=== PATIENT | female | born 1955 | race Caucasian/White ===

== ENCOUNTER 2024-03-10 12:50 | Inpatient (IN) | payer MEDICARE, OTHER, SELFPAY ==
[2024-03-10] VITALS (50 sets, daily range): BP systolic 77–129; BP diastolic 28–108; PULSE 2–88; BMI 24.8
--- NOTE | 2024-03-10 11:20 | ED.GENMED ---
History of Present Illness
General
Chief Complaint: Chest Pain
Source: patient and records (requested)
Exam Limitations: none
Time Seen by Provider: 03/10/24 11:07
Nursing documentation reviewed up to this point in time: agreed with
History of Present Illness
History of Present Illness:
68-year-old female presents with chest pain onset at 830 middle of her chest into her back and shoulders for 5 out of 10 started with light activity at her job at a local [employer] she lives in the [facility] she had a cath a year ago she sees
Mamta had no stents placed, procedure was done at [facility], she has hyperlipidemia, does not drink or smoke
Past History
Past History
ED Past Medical History: Hypercholesterolemia; Negative CAD or NIDDM
Social History
Tobacco: Non-smoker
Alcohol: None
Drug: None
Personal:
Living: with family
Employment: Employed
Phy Exam
Physical Exam
Physical Exam:
Physical Exam
General: 68 female looks uncomfortable
Neck: No jaundice
Heart: Tachycardic
Lungs: no acute respiratory distress. clear bilaterally
Abdomen: Not tender
Neuro: alert and oriented. no focal neurological deficits
Skin: no rash
Psychiatric: well kept. interactive and cooperative
Extremities: no edema. no calf tenderness.
Scores
Heart Score for Chest Pain Patients
STEMI patient?: No
History: Highly Suspicious
ECG: Significant ST-Depression
Age: >/= 65 years
Risk Factors: 1 or 2 Risk Factors
Troponin: >1 - <3 x Normal Limit
Heart Score for Chest Pain Patients: 8
Heart Score Risk: 72.7 % MACE over next 6 weeks
Course
Orders/Labs/Results
Orders:
Orders
03/10/24 10:59
Electrocardiogram (*1) Urgent
Reason for Study: Chest Pain
EKG- Treatment ONCE
03/10/24 11:11
Electrocardiogram (*1) Stat
Reason for Study: Other
Other Reason for Exam: chest pain
Cardiac Monitoring- Treatment ONCE
EKG- Treatment ONCE
Aspirin 325 mg PO NOW STA
CR Chest Portable - 1 View Urgent
Comment:
Reason For Exam: cp
Reason Study Needs to be Portable: Unable to Transport
03/10/24 11:16
Complete Blood Count/With Diff Urgent
Comprehensive Metabolic Panel Urgent
Lipase Urgent
Magnesium Urgent
TSH Urgent
Troponin I Urgent
03/10/24 11:19
Metoprolol [Lopressor] 2.5 mg IV NOW STA
03/10/24 11:48
Nitroglycerin Sublingual [Nitrostat (Sublingual)] 0.4 mg .ROUTE .STK-MED ONE
03/10/24 11:56
Heparin 3,700 units IV NOW STA
Heparin 4,000 units IV NOW STA
Heparin 5,000 units .ROUTE .STK-MED ONE
Abnormal Lab Results
03/10/24
11:16
BUN 18 H mg/dl
(7-17)
Glucose 112 H mg/dl
(70-99)
Troponin I 0.152 H* ng/ml
03/10/24 11:16
03/10/24 11:16
Vital Signs
Initial and Last Documented VS:
Initial Vital Signs
Pulse Resp BP Pulse Ox
140 18 129/78 98
03/10/24 11:08 03/10/24 11:08 03/10/24 11:08 03/10/24 11:08
Last Documented Vital Signs
Temp Pulse Resp BP Pulse Ox
97.6 F 93 23 97/66 92
03/10/24 11:11 03/10/24 11:46 03/10/24 11:46 03/10/24 11:46 03/10/24 11:45
MDM/Problems Addressed
Differential Diagnosis Includes:
ACS PE pericarditis less likely dissection
MDM/Problems Addressed:
Chest pain
Chronic conditions affecting care:
Hyperlipidemia
*Radiology
Radiology exam reviewed: preliminary read by ED provider
*Pulse Oximetry
Patient hypoxic: no
*EKG
Interpreted by ED Provider?: Yes
Interpretation: abnormal
Comparison EKG: no comparison EKG present
Heart Rate: 118
Rate: tachycardiac
Rhythm: sinus
Ischemia: ST depression
*Exhibition Designer Interpretation
Rate: normal
Interpretation: normal
Heart Rate: 122
Rhythm: sinus
*Critical Care Note
Total Time (30-74mins, 75-104mins- exclusive of procedures): 32
Update Note
Update Note:
Update patient with symptoms concerning for ACS plaque rupture, right sided posterior EKGs reviewed with cardiology looks that she has some dynamic changes, troponins noted will start on heparin will go for cardiac cath
ED Attending Note
-
Portions of this chart may have been created with voice recognition software.� Occasional wrong word or��sound alike� substitutions may have occurred due to the inherent limitations of voice recognition software.
Discharge Plan
Departure
Patient Disposition: Admit
Date of Disposition: 03/10/24
Time of Disposition: 11:58
Admit to: recyclable materials collector
Admit to doctor: cardiology
Presentation/result/management discussed w/ accepting MD/DO: cbc
Patient with high blood pressure during this ER visit?: No
Covid-19: Not Applicable
Discharge Problem:
ACS (acute coronary syndrome)
Interventions
Interventions:
*Risk Screen - Suicide Last Done: 03/10/24 11:11
*General Assessment Last Done: 03/10/24 11:11
*Neglect/Abuse Screening Last Done: 03/10/24 11:11
*ED COVID-19 Vaccine History Last Done: 03/10/24 11:11
ED- Cardiac Assessment Last Done: 03/10/24 11:40
Discharge Date and Time
Print Language: YI
[2024-03-10] MEDS: ASPIRIN 325 MG PO (11:26)
[2024-03-10] MEDS: LOPRESSOR 2.5 MG IV (11:26)
[2024-03-10 11:29] LABS: % Basophils 0.9 % (0-2); % Eosinophils 0.8 % (0-6); % Immature Granulocytes 0.3 % (0-0.5); % Lymphocytes 36.5 % (20.5-51.1); % Monocytes 7.2 % (1.7-9.3); % Neutrophils 54.3 % (42.2-75.2); Absolute Basophils 0.1 10^3/uL (0-0.2); Absolute Eosinophils 0.1 10^3/uL (0-0.7); Absolute Lymphocytes 2.9 10^3/uL (1.2-3.4); Absolute Monocytes 0.6 10^3/uL (0.1-0.6); Absolute Neutrophils 4.3 10^3/uL (1.4-6.5); Hematocrit 43.7 % (37.0-47.0); Hemoglobin 14.8 g/dL (12.0-16.0); Mean Corp Hgb Conc. 33.9 g/dL (33.0-37.0); Mean Corpuscular Hgb 30.1 pg (27.0-31.0); Mean Corpuscular Volume 88.8 fL (81.0-99.0); Mean Platelet Volume 9.8 fL (7.4-10.4); Nucleated Red Blood Cells % 0 %; Platelet Count 227 10^3/uL (130-400); Red Blood Cell Count 4.92 10^6/uL (4.20-5.40); Red Cell Dist. Width 13.3 % (11.5-14.5); White Blood Cell Count 7.8 10^3/uL (4.8-10.8)
[2024-03-10 11:39] LABS: ALT (SGPT) 23 U/L (0-35); AST (SGOT) 34 U/L (14-36); Albumin 4.8 g/dl (3.5-5.0); Alkaline Phosphatase 55 U/L (38-126); Blood Urea Nitrogen 18 mg/dl (7-17); Calcium 9.5 mg/dl (8.4-10.2); Carbon Dioxide 27 mmol/L (22-30); Chloride 99 mmol/L (98-107); Estimated Creatinine Clearance 55 ml/min; Glucose 112 mg/dl (70-99); Lipase 103 U/L (23-300); Magnesium 2.3 mg/dl (1.6-2.3); Potassium 4.1 mmol/L (3.5-5.1); Sodium 135 mmol/L (135-145); Total Bilirubin 0.5 mg/dl (0.2-1.3); Total Protein 7.6 g/dl (6.3-8.2); eGFR > 60.00
[2024-03-10 11:54] LABS: Troponin I 0.152 ng/ml
[2024-03-10] MEDS: HEPARIN 4000 UNITS IV (11:58)
--- NOTE | 2024-03-10 12:03 | HPS.HSE ---
Addendum entered and electronically signed by Kathrin Briones MD 03/10/24 12:11:
Patient on abx for eye 'infection' will continue
Original Note:
Family Physician
-
Family Physician:
Chief Complaint
-
chest pain
History of Present Illness
68-year-old female with a past medical history of hyperlipidemia presented for evaluation for sudden onset chest pain this morning while driving to work. She describes the chest pain as a pressure. She had some lightheadedness with it and felt not
right. When she got to work she asked her coworker to drive her here. She had the pain for several hours. Upon arrival, she began to feel better. Interestingly when she arrived with chest pain, she had diffuse anterolateral ST depressions and ST
elevation in aVR. Now she is past chest pain-free and we repeated the EKG and those ST changes have resolved. She also reports a catheterization last year after an abnormal stress test that she reports was 'normal'. She is compliant with
atorvastatin but decrease her dose from 40 mg to 20 mg. She has no other significant medical problems.
Medical History
Past Medical History
Past Medical History: Reports Hypercholesterolemia
Past Surgical History: Reports None
Social History
Tobacco: Non-smoker
Alcohol: None
Living: With Family
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
Family History
Family History: Early CAD (None)
Allergies / Home Medications
Allergies reflects when Allergies were last updated in [facility].
Home Medications with original date entered in [facility]
Allergy/Medication List:
No known drug allergies
Review of Systems
-
A 12 point ROS was completed and negative except as noted: Yes
Physical Exam
Vital Signs
Vital Signs
Temp Pulse Resp BP Pulse Ox
97.6 F 93 23 97/66 92
03/10/24 11:11 03/10/24 11:46 03/10/24 11:46 03/10/24 11:46 03/10/24 11:45
Physical Exam
General: Well Developed, Well Nourished and No Apparent Distress
HEENT: NormoCephalic
Respiratory: Clear; No Wheezes, Rales, Rhonchi or Crackles
Cardiac: S1/S2 and Regular Rhythm; No Murmur, Rub, Gallop or Peripheral Edema
GI: Soft, Non Tender and Non Distended
Genito-urinary: Deferred by me
Musculoskeletal: No Clubbing, No Cyanosis and No Edema
Neuro: AO x 3
Laboratory Results
-
03/10/24 11:16
03/10/24 11:16
Laboratory Results
Total Bilirubin 0.5 mg/dl (0.2-1.3) 03/10/24 11:16
AST 34 U/L (14-36) 03/10/24 11:16
ALT 23 U/L (0-35) 03/10/24 11:16
Alkaline Phosphatase 55 U/L (38-126) 03/10/24 11:16
Troponin I 0.152 ng/ml H* 03/10/24 11:16
Lipase 103 U/L (23-300) 03/10/24 11:16
troponin elevated at 0.15
Data Reviewed
-
CT Scan: Discussed with Physician (Discussed with Dr. Higgins and Dr. Ceballos, recommend urgent cardiac catheterization for concern of ACS.)
Medical Tests (Nuc Med, Echo, EKG etc): Image Personally Visualized and interpreted (Initial EKG sinus tachycardia 111 bpm with anteroseptal infarct, marked ST depressions V3-V6 to [address] elevation in aVR. PACs seen. At the bedside, she
was chest pain-free EKG ST depressions normalized.)
Impression/Plan
-
IMPRESSION:
ACS: Acute onset chest pain at rest with associated dynamic EKG changes and troponin of 0.15. Must rule out acute plaque rupture. She was given aspirin, will give heparin bolus.
-Main differential would be coronary vasospasm, given age and gender also could consider scad.
-Arrange for urgent transfer to the cardiac catheterization lab.
-Currently chest pain-free and blood pressure low normal, will hold off on nitrates unless needed.
-OMT will be added as indicated pending results of catheterization.
-Check lipid panel
-Check echo
-High-dose statin.
Hyperlipidemia: Continue statin.
This is a high risk situation, will admit to IVU after cardiac catheterization is performed.
--- NOTE | 2024-03-10 12:14 | ITS.CL.CATH ---
[facility] - Catheterization
Cardiac Catheterization
Procedure Report:
LEFT HEART CATHETERIZATION
Date of Procedure: March 10, 2024
Referring: Benita Briones
PROCEDURES:
1. Left heart catheterization, coronary angiogram.
2. Ultrasound guided access.
3. Single-plane ventriculography
INDICATION: Irma is a 68-year-old female with past medical history of hyperlipidemia who came in with acute onset chest pain found to have dynamic EKG changes and now is being urgently referred for left heart catheterization to rule out
obstructive CAD.
ACCESS: Right radial artery, 6 Greenlandic sheath, under ultrasound guidance
HEMODYNAMICS : (mmHg)
AO (s/d) : 86/62
LV (s/d) : 160/20
LVEDP : 38
CORONARY FINDINGS
DOMINANCE: Right
LEFT MAIN: The left main artery is a large-caliber vessel which gives rise to the left anterior descending artery and the left circumflex artery. There is minimal luminal irregularities.
LEFT ANTERIOR DESCENDING: The left anterior descending artery is a medium caliber vessel which gives rise to 2 major small caliber diagonal branches as it courses through the anterior interventricular groove towards the apex. There is minimal
luminal irregularities
CIRCUMFLEX: The left circumflex artery is a medium to large caliber vessel which we have's rise to 1 major obtuse marginal branch and a large posterolateral branch. There is minimal luminal irregularities.
RIGHT CORONARY ARTERY: The right coronary is a medium to large caliber, dominant vessel which gives rise to the right posterior descending artery and a small right posterolateral system. There is minimal luminal irregularities.
VENTRICULOGRAPHY: In a single-plane MCKENNA projection, there is severe hypokinesis in the mid to apical segments with hyperdynamic base, most consistent with stress-induced or Takotsubo cardiomyopathy. Estimated LVEF of about 30 to 35%
SEDATION: 30 minutes of procedural sedation was utilized. An independent medical equipment repairer was present to assist with and help manage the patient's level of consciousness and physiologic status.
RADIATION SUMMARY: Fluoro Time (min): 2.9, Dose (mGy): To 65.4, DAP (Gy.cm2) : 17.6
Closure Device: Vascular band over right radial artery, 10 cc of air
CONCLUSIONS
1. No obstructive coronary artery disease.
2. In a single-plane MCKENNA projection, there is severe hypokinesis in the mid to apical segments with hyperdynamic base, most consistent with stress-induced or Takotsubo cardiomyopathy. Estimated LVEF of about 30 to 35%.
3. Significantly elevated LVEDP at 38 mmHg.
RECOMMENDATIONS
1. Wean radial band per protocol.
2. Goal-directed medical therapy for underlying cardiomyopathy.
3. Full echocardiogram to assess biventricular function and rule out any significant valvular abnormalities.
4. Aggressive management of cardiovascular risk factors.
5. Eventual referral for outpatient cardiac
Copy to: Benita Briones
Sweta Ceballos MD, FACC, [facility]
[2024-03-10 12:25] LABS: TSH 2.07 uIU/ml (0.47-4.68)
[2024-03-10 13:00] LABS: ACT-LR - POC 260 Seconds (116-155)
--- NOTE | 2024-03-10 14:04 | CON.INTV ---
Consultation
Consultation Request
Date/Time Consultation Requested: 03/10/2024
Date/Time Consultation Performed: 03/10/2024
Requesting Provider: Dr. Briones
Performing Provider: Dr. Silas Augustine
Reason for Consultation: Acute hypoxemic respiratory failure/hypotension
Medical History
-
History of Present Illness:
68-year-old woman with history of hypercholesterolemia, came to the hospital for evaluation of chest pressure started this morning while she was driving to work. Patient did not feel well and complained of some lightheadedness. In the emergency
room she was found to have EKG abnormalities.Patient has a mild troponin increase. Chest x-ray demonstrated mild diffuse increased interstitial markings bilaterally. Patient underwent cardiac catheterization and discovered to have Takotsubo
cardiomyopathy. Had elevated filling pressures on catheterization per report, became hypotensive after diuresis. Became hypoxemia requiring noninvasive mechanical ventilation and is more hypertensive. Now sent to the critical care unit for
further care.
Past Medical History
Past Medical History: Other (See assessment and plan)
Social History
Tobacco: Non-smoker
Alcohol: None
Drug: None
Personal:
Living: With Family
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
Family History
Family History: Reviewed & Not Pertinent
Allergies / Home Medications
Allergies
Allergy/AdvReac Type Severity Reaction Status Date / Time
No Known Allergies Allergy Verified 03/10/24 11:21
Home Medications
�Medication �Instructions �Recorded �Confirmed �Last Taken �Type
atorvastatin 20 mg tablet (Lipitor) 20 mg PO HS 03/10/24 03/10/24 03/09/24 History
calcium carbonate 500 mg PO DAILY 03/10/24 03/10/24 03/09/24 History
cephalexin 500 mg capsule 500 mg PO Q8H 03/10/24 03/10/24 03/10/24 History
tobramycin 0.3 % eye drops 1 drp LEFT EYE QID 03/10/24 03/10/24 03/10/24 History
Review of Systems
-
History Source: Patient
All other systems: Negative unless noted
Vitals / Labs / Diagnostic Testing
Vital Signs
Temp Pulse Resp BP Pulse Ox
97.6 F 108 25 99/67 91
03/10/24 11:11 03/10/24 12:30 03/10/24 12:15 03/10/24 12:30 03/10/24 12:30
Lab Data
03/10/24 11:16
03/10/24 11:16
Diagnostic Testing:
Physical Exam
-
HEENT: Normocephalic
Cardiovascular: S1/S2
Respiratory: Rales
GI: Soft and Non Distended
Neurology: Awake, Oriented, AO x 3 and No Motor Deficits
Skin: Warm
General: Respiratory Distress (None on BiPAP) and Comfortable
Assessment
-
68-year-old woman who was admitted to the hospital on 03/10/2024 complaining of chest pressure, abnormal EKG in the emergency room. Taken to the [facility] that demonstrated no significant coronary artery disease. Ventriculogram consistent with
possible Takotsubo cardiomyopathy, patient developed hypotension of after receiving Lasix in the [facility]. Required Levophed. Transferred to the critical care unit for further care. Due to increased work of breathing also BiPAP was started.
Shock: Likely cardiogenic
Hypoxemic respiratory failureRecurrent BiPAP therapy for increased work of breathing
Chest x-ray with increased interstitial marking bilaterally.
Takotsubo cardiomyopathy based on left heart catheterization 03/10/2024
No significant coronary artery disease.
Conditions present prior admission:
Hyperlipidemia
Assessment and plan:
Patient is critically ill requiring noninvasive mechanical ventilation as well as vasopressors due to Takotsubo cardiomyopathy.
-
Shock: Continue Levophed for now, may need to consider inotropes-wait for cardiology input.
Levophed at 6 mics per minute-she seems improved. Comfortable at rest. Able to provide history.
Will target mean arterial blood pressure 65 mmHg
Cardiology following the patient: No significant coronary artery disease.
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 Perhaps reason for Takotsubo cardiomyopathy
Continue with goal-directed therapy for systolic cardiomyopathy.
Philip
Strict TAYLER's
Daily weight
Echocardiogram being performed-will follow.
-
Diuresis limited due to hypotension/shock.
Will follow renal function
-
Continue BiPAP, continue settings without change 12/13: Will adjust settings based on work of breathing. She appears comfortable pulse ox 98%.
Decrease FiO2 to 10 L/min via BiPAP.
She may take breaks from BiPAP later today.
Supplemental oxygen to maintain pulse ox above 90%
-
N.p.o. for now
Head of the bed elevation
-
DVT prophylaxis subcu
-
updated at the bedside by Dr. Augustine 03/10/2024.
-
Critical care statement: A total of 38 minutes of critical care time was provided for this patient today. This includes management of unstable vital signs, evaluation of the patient at bedside, reviewing the patient's pertinent medical records
including ventilator settings, arterial blood gases, radiographs, microbiology, laboratory evaluations and discussion with primary team, critical care nursing, and respiratory therapy.
--- NOTE | 2024-03-10 14:37 | W.PN.UPDATE ---
Update Note
Progress Note Update
Interventional cardiology update note
soon after scrubbing out of the case and calling the referring floor renovator, was called back into the lab given patient was hypotensive and hypoxic. She had gotten 20 mg of IV Lasix in the middle of the heart catheterization however had not had any
significant urine output yet. She was also diaphoretic and lightheaded. Systolic blood pressure was 76/42 with heart rates now in the 80s to 90s with sinus rhythm and pulse ox in the low to mid 80s. We urgently called for respiratory to bring
down a BiPAP given hypoxia was related to underlying heart failure from likely Takotsubo cardiomyopathy in the setting of a significantly elevated LVEDP. Patient received 3 pushes bedside of 100 mcg of Major-Synephrine for her hypotension and was
started on Levophed drip which was slowly uptitrated to 6 mcg/kg/min for blood pressure support. Level of care was escalated to request an ICU level of care given tenuous clinical status. With slow uptrend in her blood pressure patient became
symptomatically better with resolution of diaphoresis, chest pain and lightheadedness. Her pallor improved. She was placed on BiPAP 10/5 at 15 L of oxygen with improvement in her sats to 94%.
Referring floor renovator was updated regarding all of the above.
Sweta Ceballos MD, FAC, [facility]
Critical care time: 31mins
--- NOTE | 2024-03-10 15:03 | CARDSERVDEF ---
Echocardiogram with Definity completed after protocol screening completed. Allergies verified.
Patent IV site: __new site 20P L antecub/slightly upper arm area___
IV site flushed with 0.9% NaCl pre and post administration.
Diluted bolus method utilized to enhance visualization of ventricular gaitan.
Total volume given: __3.5__ mL
Patient tolerated all procedures well without complications.
[2024-03-10] MEDS: TOPROL XL 25 MG PO (15:07)
[2024-03-10] MEDS: KEFLEX PO (15:07)
[2024-03-10] MEDS: TOBREX 0.3% EYE DROPS 1 DROP LEFT EYE ×3 (17:17→21:44)
[2024-03-10 17:20] LABS: Phosphorus 4.3 mg/dl (2.5-4.5)
[2024-03-10 17:24] LABS: INR 1.02
--- NOTE | 2024-03-10 17:25 | PTCARENOTE ---
Pt received from laborer mine. AAOx3. Denying chest pain. Sinus tach with HR observed 100s - 120s. Received with Levophed gtt infusing with goal of SBP > 90; Levophed gtt weaned to 2 mcg/min. MAP remains > 65 and SBP > 90. SaO2 88-97% on BiPAP 10/5;
10L. Crackles auscultated throughout bilaterally. Harsh wet nonproductive cough. Orthopneic. 10L Midflow applied for pt to eat dinner with plan to return to BiPAP after completion. Pt assisted to bedside commode x1 without drop in SaO2 or blood
pressure. Voided 250ml yellow. (R) radial site band removed per protocol.
[2024-03-10] MEDS: KEFLEX 500 MG PO (17:52)
--- NOTE | 2024-03-10 19:40 | PTCARENOTE ---
Rec'd pt resting in bed, at bedside, updated on plan of care, denies pain, cooperative, Sinus Tach, levophed at 2 gino, to keep sbp > 90,R Rad site intact- ecchymotic at site, + pulses- weak ldistal pulses, skin dry, O2 via midflow 10 liters,
sat 95, lungs w/ crackles throughout, shallow, GONZALES, + bowel sounds, no bm, abd soft, HNV yet this shift; Nico Rubio NP notified of Sinus tach & crackles- LEVEL VIAL SETTER updated Dr Briones - to dc levophed & use Major prn, #16 fr thermister davison cath
inserted per order at 2100
--- NOTE | 2024-03-10 21:40 | PTCARENOTE ---
Major gtt started @ 20 gino to keep sbp > 90
[2024-03-10] MEDS: NEO-SYNEPHRINE 250 IV (21:41)
[2024-03-10] MEDS: MELATONIN 5 MG PO (21:44)
[2024-03-10] MEDS: LIPITOR 20 MG PO (21:44)
[2024-03-10 22:08] LABS: Blood Urea Nitrogen 17 mg/dl (7-17); Calcium 8.8 mg/dl (8.4-10.2); Carbon Dioxide 20 mmol/L (22-30); Chloride 102 mmol/L (98-107); Estimated Creatinine Clearance 63 ml/min; Glucose 122 mg/dl (70-99); Potassium 4.4 mmol/L (3.5-5.1); Sodium 132 mmol/L (135-145); eGFR > 60.00
[2024-03-10 22:09] LABS: APTT 29.7 Sec (23.4-35.0)
--- NOTE | 2024-03-10 22:30 | PTCARENOTE ---
bipap 10/5 w/ 10 liters o2 applied for the night
--- NOTE | 2024-03-10 23:00 | PTCARENOTE ---
sat 89%, BIPAP 10/5 w/ o2 incr to 15 liters, sat inc to 93
[2024-03-11] VITALS (62 sets, daily range): BP systolic 71–119; BP diastolic 48–81; PULSE 2–70; BMI 24.9
--- NOTE | 2024-03-11 00:08 | PTCARENOTE ---
sys reviewed, lungs w/ rales throughout, comf on bipap
[2024-03-11] MEDS: KEFLEX PO ×3 (00:10→08:30)
[2024-03-11 03:57] LABS: % Basophils 0.5 % (0-2); % Eosinophils 0.1 % (0-6); % Immature Granulocytes 0.4 % (0-0.5); % Monocytes 6.6 % (1.7-9.3); % Neutrophils 73.4 % (42.2-75.2); Absolute Basophils 0.1 10^3/uL (0-0.2); Absolute Immature Granulocytes 0.1 10^3/uL (0-0.05); Absolute Lymphocytes 2.7 10^3/uL (1.2-3.4); Absolute Neutrophils 10.6 10^3/uL (1.4-6.5); Hemoglobin 14.7 g/dL (12.0-16.0); Mean Corpuscular Hgb 30.1 pg (27.0-31.0); Mean Corpuscular Volume 85.9 fL (81.0-99.0); Nucleated Red Blood Cells % 0 %; Platelet Count 231 10^3/uL (130-400); Red Blood Cell Count 4.89 10^6/uL (4.20-5.40); Red Cell Dist. Width 13.3 % (11.5-14.5); White Blood Cell Count 14.4 10^3/uL (4.8-10.8)
--- NOTE | 2024-03-11 04:00 | PTCARENOTE ---
sys reviewed, lungs w/ crackles 1/2 up left & R base, sat 98
[2024-03-11 04:27] LABS: ALT (SGPT) 24 U/L (0-35); AST (SGOT) 61 U/L (14-36); Albumin 3.7 g/dl (3.5-5.0); Alkaline Phosphatase 51 U/L (38-126); Blood Urea Nitrogen 16 mg/dl (7-17); Calcium 8.6 mg/dl (8.4-10.2); Carbon Dioxide 24 mmol/L (22-30); Chloride 103 mmol/L (98-107); Estimated Creatinine Clearance 55 ml/min; Glucose 103 mg/dl (70-99); HDL Cholesterol 73 mg/dl; LDL Cholesterol, Calculated 59 mg/dl; Potassium 4.3 mmol/L (3.5-5.1); Sodium 134 mmol/L (135-145); Total Bilirubin 0.6 mg/dl (0.2-1.3); Total Cholesterol 153 mg/dl (50-199); Total Protein 6.2 g/dl (6.3-8.2); Triglyceride 105 mg/dl (10-149); Very Low Density Lipoprotein 21 mg/dl (0-30); eGFR > 60.00
--- NOTE | 2024-03-11 05:58 | PTCARENOTE ---
bipap off per pt request, 10 liters midflow applied
[2024-03-11] MEDS: TYLENOL 650 MG PO (06:04)
--- NOTE | 2024-03-11 06:07 | PTCARENOTE ---
tylenol 650 mg po given for headache
--- NOTE | 2024-03-11 08:00 | PTCARENOTE ---
Received pt @ change of shift. AAOx3, denies pain. SR on monitor. SpO2 97% on 10LMF, GONZALES. Auscultated scattered crackles throughout. +BS, abd soft/round/nt. Cont BM. Tolerating meals. Therm davison in place draining yellow urine. #20 R AC w
valery gtt infusing- see flow sheet. Call thomas in reach.
--- NOTE | 2024-03-11 08:07 | W.PN.CD ---
Addendum entered and electronically signed by Kathrin Briones MD 03/11/24 09:30:
Data:
TTE 03/10/24:
CONCLUSIONS
Moderately reduced left ventricular systolic function. Left ventricular
ejection fraction is 30-35% by visual estimate.
Hyperdynamic basal wall segments with mid to distal severe hypokinesis of all
gaitan suggestive of Takotsubo cardiomyopathy.
Intermittent complete obliteration of the LVOT, gradients not obtained due to
patient distress limiting the study.
Systolic anterior motion of the mitral valve leaflets with moderate to severe,
eccentric mitral regurgitation.
Mild pulmonary hypertension.
Cath: 03/10/24:
CONCLUSIONS
1. No obstructive coronary artery disease.
2. In a single-plane MCKENNA projection, there is severe hypokinesis in the mid to apical segments with hyperdynamic base, most consistent with stress-induced or Takotsubo cardiomyopathy. Estimated LVEF of about 30 to 35%.
3. Significantly elevated LVEDP at 38 mmHg.
No prior study available for comparison.
Original Note:
Today's Communication / Plan
-
Discussed with patient, ccn and Dr Tsai
Impression / Plan
-
68-year-old female with a past medical history of hyperlipidemia presented for evaluation for sudden onset chest pain while driving to work. Initial EKG changes were dynamic, she was sent for cardiac catheterization found to have Takotsubo
cardiomyopathy.
Cardiogenic shock: In the setting of Takotsubo cardiomyopathy with LV outflow tract obstruction:
-Successfully transitioned overnight to phenylephrine, will continue.
-Continue beta-cesar, will assess response this a.m. and up titrate dose.
-Patient slightly negative but UOP not robust, given hemodynamics will give a IV bolus in effort to help with LVOT obstruction.
-Explained the complexity of the situation to the patient and the need to optimize her hemodynamics. With this may need more respiratory support.
Acute hypoxic respiratory failure: 2/2 to CHF
- comfortable
-eventually will likely need diuresis but this will have to wait until HD's improve
-BIPAP supports available
-Appreciate nitrogen operator assistance
Takotsubo CMY
-causing significant LVOT obstruction
-BB to continue
-eventual GDMT as able
Mod-severe MR;
-Due to HOWARD in the setting of takotsubo CMY
-hopefully will improve as HD's improve
-reassess prior to discharge
HLD:
-LDL 153, will bump up statin prior to discharge
Eye infection'
-completed abs
Overall still remains a high risk situation
Subjective:
didn't sleep well, but breathing actually feeling a bit better
CCT 35 minutes
Physical Exam
Vital Signs/Labs
Vital Signs
Temp Pulse Resp BP Pulse Ox
100.3 F 83 16 93/67 94
03/11/24 07:00 03/11/24 06:15 03/11/24 06:15 03/11/24 06:11 03/11/24 06:15
03/10/24 03/11/24 03/12/24
06:59 06:59 06:59
Actual Weight 61.8 kg
03/11/24 03:39
03/11/24 03:39
PT 14.0 Sec (11.4-14.6) 03/10/24 16:55
INR 1.02 03/10/24 16:55
APTT 29.7 Sec (23.4-35.0) 03/10/24 21:39
Magnesium 2.3 mg/dl (1.6-2.3) 03/10/24 11:16
Triglycerides 105 mg/dl (10-149) 03/11/24 03:39
LDL Cholesterol, Calc 59 mg/dl 03/11/24 03:39
VLDL Cholesterol, Calc 21 mg/dl (0-30) 03/11/24 03:39
HDL Cholesterol 73 mg/dl 03/11/24 03:39
TSH 2.07 uIU/ml (0.47-4.68) 03/10/24 11:16
LAB Results
03/10/24 03/10/24 03/10/24
11:16 16:55 21:39
Troponin I 0.152 H* 1.670 H* D 2.360 H* D
03/11/24
03:39
Troponin I 4.460 H* D
Physical Exam
Constitutional: No acute distress
Cardiovascular: Rhythm & rate is regular, Pedal edema is absent (but feet cool), JVD pressure is normal, Systolic murmur absent and Diastolic murmur absent
Respiratory: Respiratory effort normal and Crackles Present (bibasilarly )
Neuro/Psych: AO x 3
Data Reviewed
-
Date of Service: March 11, 2024
Medical Decision Making: Review of Case with other Provider (Discussed with patient, ccn and Dr Tsai---need to approach differently than typical cardiogenic shock given LVOT obstruction)
EKG: Other (tele NSR and ST)
[2024-03-11] MEDS: TOPROL XL 25 MG PO ×2 (08:28→20:31)
[2024-03-11] MEDS: NSS 500 IV (08:28)
[2024-03-11] MEDS: TOBREX 0.3% EYE DROPS 1 DROP LEFT EYE ×4 (08:28→20:32)
[2024-03-11] MEDS: LOW STRENGTH ASPIRIN 81 MG PO (08:28)
--- NOTE | 2024-03-11 08:34 | W.PN.INTV ---
Today's Communication / Plan
Recommendations
Continue Major-Synephrine
Beta-blockers
Follow renal function
Cautious hydration today
BiPAP as needed for increased work of breathing but would use at bedtime.
Oxygen supplementation to maintain pulse ox above 90%-oxygen supplementation reduced to 6 L nasal cannula.
Continue critical care hemodynamic monitoring
Continue cardiology recommendations
Assessment
-
68-year-old woman who was admitted to the hospital on 03/10/2024 complaining of chest pressure, abnormal EKG in the emergency room. Taken to the [facility] that demonstrated no significant coronary artery disease. Ventriculogram consistent with
possible Takotsubo cardiomyopathy, patient developed hypotension of after receiving Lasix in the [facility]. Required Levophed. Transferred to the critical care unit for further care. Due to increased work of breathing also BiPAP was started.
Cardiogenic shock
Hypoxemic respiratory failureRecurrent BiPAP therapy for increased work of breathing
Chest x-ray with increased interstitial marking bilaterally.
Takotsubo cardiomyopathy based on left heart catheterization 03/10/2024
No significant coronary artery disease.
Conditions present prior admission:
Hyperlipidemia
Assessment and plan:
Patient is critically ill requiring noninvasive mechanical ventilation as well as vasopressors due to Takotsubo cardiomyopathy.
-
Shock:
Echocardiogram noted03/10/2024: Ejection fraction 30 to 35%. Hyperdynamic basal wall segment with mid to distal severe hypokinesis of all gaitan suggestive of Takotsubo cardiomyopathy. Intermittent complete obliteration of the LVOT, moderate to
severe MR. Mild pulmonary hypertension
Continue Levophed for now, may need to consider inotropes-wait for cardiology input.
Levophed at 6 mics per minute-she seems improved. Comfortable at rest. Able to provide history.
-
Catheterization 03/10/2024: No evidence for obstructive coronary artery disease. Severe hypokinesis of mid to apical segments ejection fraction 30 to 35%, consistent with Takotsubo cardiomyopathy. Increased LVEDP
-
Discussed with cardiology 03/11/2024: Avoid tachycardia-Levophed transition to Major-Synephrine.
Cautious hydration today
Unable to diurese at this point
Low-dose beta-blockers as able
Antiplatelets
Statins
Continue goal-directed therapy for cardiomyopathy.
-
Will follow renal function closely
Continue ICU hemodynamic monitoring, high risk intubation.
-
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 Perhaps reason for Takotsubo cardiomyopathy
-
Continue Philip
Strict TAYLER's
Daily weight-unable to diurese at this point due to borderline hemodynamics.
-
Continue BiPAP, continue settings without change 12/13: May continue at night and as needed. Patient snores and she was supposed to get a sleep study in the outpatient setting.
Pulse ox 100% on 10 L nasal cannula, decreased to 6 L on pulse ox remains at 95% with conversation.
Continue to decrease FiO2, maintain pulse ox above 90%
She may take breaks from BiPAP intermittently.
-
Advance diet
Head of the bed elevation
-
DVT prophylaxis subcu
-
updated at the bedside by Dr. Augustine 03/10/2024.
-
Critical care statement: A total of 31 minutes of critical care time was provided for this patient today. This includes management of unstable vital signs, evaluation of the patient at bedside, reviewing the patient's pertinent medical records
including ventilator settings, arterial blood gases, radiographs, microbiology, laboratory evaluations and discussion with primary team, critical care nursing, and respiratory therapy.
Subjective Dataa
Subjective Data
Date of Service:
Date of Service: March 11, 2024
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
Subjective:
Remained intermittently on BiPAP overnight
No significant phlegm production
Denies shortness of breath at rest
Denies chest pain or lightheadedness
Review of Systems
Cardiopulmonary: Dyspnea (none at rest)
GI: Abdominal Pain (n) and Nausea (n)
Neuro: Headache (n)
Objective Data
Data Reviewed
Vital Signs / I&O / Oxygen:
Vital Signs
Temp Pulse Resp BP Pulse Ox
100.3 F 83 16 110/65 94
03/11/24 07:00 03/11/24 08:28 03/11/24 06:15 03/11/24 08:28 03/11/24 06:15
Intake and Output
03/10/24 03/11/24 03/12/24
06:59 06:59 06:59
Intake Total 664.5 / 664.5
Output Total 970 / 970
Balance -305.5 / -305.5
SaO2 94
Nasal Cannula flow liters per 10
minute
Physical Exam
General: Comfortable
HEENT: Normocephalic
Cardiovascular: S1-S2
Respiratory: Crackles and Non-Labored Respirations (at rest)
GI: Soft and Non Distended
Neurology: Awake and AO x 3
Skin: Warm
Labs/Micro/Reports
Lab Data
03/11/24 03:39
03/11/24 03:39
Laboratory Results
03/10/24 03/10/24
16:55 21:39
PT 14.0
INR 1.02
APTT 29.7
[2024-03-11] MEDS: NEO-SYNEPHRINE 250 IV (09:48)
--- NOTE | 2024-03-11 15:13 | PTCARENOTE ---
O2 weaned today down to 6LNC, pt. tolerating wean; SpO2 97%. No s/s of resp distress. SBP maintained goal x4H, valery gtt tapered to off. Pt. stand by assisted OOB into BR for complete self hygiene care. Pt. assisted into chair post BR. Tolerated
chair position approx 30min. Pt. reported slight lightheadedness and BP 80/53. Pt. assisted back into bed and valery gtt restarted- see flow sheet. @ bedside. Call thomas in reach.
[2024-03-11] MEDS: LIPITOR 20 MG PO (18:08)
--- NOTE | 2024-03-11 20:00 | PTCARENOTE ---
property assessment monitor, aaox3, denies pain, SR HR HR 60s. IV x 3 WNL- valery gtt infusing per work list. Sat 98% on 6LNC. Davison draining adequate amt UO. Mouth care, davison care. POC discussed,call thomas with pt.
[2024-03-11] MEDS: MELATONIN 5 MG PO (22:15)
[2024-03-12] VITALS (47 sets, daily range): BP systolic 87–136; BP diastolic 42–119; PULSE 2–67; BMI 25.1
--- NOTE | 2024-03-12 04:00 | PTCARENOTE ---
no changes in assessment.
[2024-03-12 04:34] LABS: % Basophils 0.5 % (0-2); % Eosinophils 0.6 % (0-6); % Immature Granulocytes 0.4 % (0-0.5); % Lymphocytes 17.8 % (20.5-51.1); % Monocytes 8.5 % (1.7-9.3); % Neutrophils 72.2 % (42.2-75.2); Absolute Basophils 0.1 10^3/uL (0-0.2); Absolute Eosinophils 0.1 10^3/uL (0-0.7); Absolute Monocytes 0.9 10^3/uL (0.1-0.6); Hematocrit 38.2 % (37.0-47.0); Hemoglobin 12.9 g/dL (12.0-16.0); Mean Corp Hgb Conc. 33.8 g/dL (33.0-37.0); Mean Corpuscular Hgb 29.7 pg (27.0-31.0); Mean Corpuscular Volume 87.8 fL (81.0-99.0); Mean Platelet Volume 10.1 fL (7.4-10.4); Nucleated Red Blood Cells % 0 %; Platelet Count 187 10^3/uL (130-400); Red Blood Cell Count 4.35 10^6/uL (4.20-5.40); Red Cell Dist. Width 13.5 % (11.5-14.5); White Blood Cell Count 11.1 10^3/uL (4.8-10.8)
[2024-03-12 04:45] LABS: Albumin 3.2 g/dl (3.5-5.0); Blood Urea Nitrogen 13 mg/dl (7-17); Calcium 8.2 mg/dl (8.4-10.2); Carbon Dioxide 27 mmol/L (22-30); Chloride 105 mmol/L (98-107); Estimated Creatinine Clearance 73 ml/min; Glucose 102 mg/dl (70-99); Phosphorus 3.1 mg/dl (2.5-4.5); Potassium 4.1 mmol/L (3.5-5.1); Sodium 136 mmol/L (135-145); eGFR > 60.00
[2024-03-12] MEDS: TOPROL XL 25 MG PO ×2 (07:46→20:38)
[2024-03-12] MEDS: TOBREX 0.3% EYE DROPS 1 DROP LEFT EYE ×4 (07:46→20:37)
[2024-03-12] MEDS: LOW STRENGTH ASPIRIN 81 MG PO (07:46)
--- NOTE | 2024-03-12 08:01 | PTCARENOTE ---
pt received from previous rn- aox4, 6Lmidflow, denies sob and chest pain. resting in bed comfortably eating breakfast. plan of care and education provided to pt- pt verbalized understanding. nsr on monitor. low dose valery continues. right wrist with
small ecchymosis to cath site, good pulses. all safety precautions in place, call thomas within reach.
--- NOTE | 2024-03-12 09:14 | W.PN.CD ---
Addendum entered and electronically signed by Alden Og MD 03/12/24 09:24:
Troponin elevation:
-Acute nonischemic myocardial injury in the setting of Takotsubo cardiomyopathy.
Original Note:
Today's Communication / Plan
-
-Will try to wean off of phenylephrine.
-Continue Toprol-XL 25 mg BID for now.
-Holding diuretics due to LVOT obstruction.
-Continue to monitor in ICU today.
-Repeat echocardiogram once off pressors (likely tomorrow).
Impression / Plan
-
68-year-old female with hyperlipidemia presented for evaluation for sudden onset chest pain while driving to work. Initial EKG changes were dynamic, she was sent for cardiac catheterization found to have Takotsubo cardiomyopathy.
Cardiogenic shock--in the setting of Takotsubo cardiomyopathy with significant LV outflow tract obstruction (EF30-35%):
-Will try to wean off of phenylephrine.
-Continue Toprol-XL 25 mg BID for now.
-Holding diuretics due to LVOT obstruction.
-Continue to monitor in ICU today.
-Repeat echocardiogram once off pressors (likely tomorrow).
-Eventual GDMT as blood pressure/hemodynamics allow.
Acute hypoxic respiratory failure: 2/2 to CHF
-Respiratory status appears to be stable at this time.
-Eventually will likely need diuresis, but this will have to wait until HD's improve.
Mod-severe MR;
-Due to HOWARD in the setting of takotsubo CMY
-hopefully will improve as HD's improve
-reassess prior to discharge (repeat echocardiogram)
HLD:
-Total cholesterol 153, LDL 59.
-Continue atorvastatin 20 mg daily.
Subjective:
No major events overnight. No cardiac complaints this a.m.
Physical Exam
Vital Signs/Labs
Vital Signs
Temp Pulse Resp BP Pulse Ox
97.8 F 81 18 100/62 100
03/12/24 08:23 03/12/24 07:45 03/12/24 07:45 03/12/24 07:46 03/12/24 08:00
03/11/24 03/12/24 03/13/24
06:59 06:59 06:59
Actual Weight 61.8 kg 62.1 kg
03/12/24 04:02
03/12/24 04:02
PT 14.0 Sec (11.4-14.6) 03/10/24 16:55
INR 1.02 03/10/24 16:55
APTT 29.7 Sec (23.4-35.0) 03/10/24 21:39
Magnesium 2.3 mg/dl (1.6-2.3) 03/10/24 11:16
Triglycerides 105 mg/dl (10-149) 03/11/24 03:39
LDL Cholesterol, Calc 59 mg/dl 03/11/24 03:39
VLDL Cholesterol, Calc 21 mg/dl (0-30) 03/11/24 03:39
HDL Cholesterol 73 mg/dl 03/11/24 03:39
TSH 2.07 uIU/ml (0.47-4.68) 03/10/24 11:16
LAB Results
03/10/24 03/10/24 03/10/24
11:16 16:55 21:39
Troponin I 0.152 H* 1.670 H* D 2.360 H* D
03/11/24 03/11/24 03/11/24
03:39 09:33 16:23
Troponin I 4.460 H* D 3.210 H* D Cancelled
03/11/24 03/11/24
16:59 22:24
Troponin I 2.270 H* D 2.170 H*
Physical Exam
Constitutional: No acute distress and Comfortable
EENT: Anicteric
Cardiovascular: Rhythm & rate is regular, Pedal edema is absent, Systolic murmur present (03/16) and S1S2 is normal
Respiratory: Respiratory effort normal, Wheeze Absent and Rhonchi Present (Mild bibasilar)
GI: Soft
Neuro/Psych: AO x 3
Other: Skin (Warm, dry, intact)
Data Reviewed
-
Date of Service: March 12, 2024
EKG: Report Reviewed by me (Telemetry: Sinus rhythm)
Echo: Report Reviewed by me (EF 30-35%)
Medical Tests (PFT, Pathology etc): Discussed with Nurse and Discussed with Patient
Labs: Labs Reviewed by me
Critical Care Time (in minutes): 42
--- NOTE | 2024-03-12 10:41 | PTCARENOTE ---
cardiology md in to see pt- ordered to keep davison at this time, pt verbalized understanding. weaning valery for goal systolic >100.
--- NOTE | 2024-03-12 10:53 | W.PN.INTV ---
Today's Communication / Plan
Recommendations
Discontinue BiPAP
Wean off oxygen
Wean off Major-Synephrine today
Continue beta-blockers
Continue ICU monitoring
Possibly repeating echo tomorrow
If stable tomorrow off vasopressors then we will transfer out of the ICU.
Assessment
-
68-year-old woman who was admitted to the hospital on 03/10/2024 complaining of chest pressure, abnormal EKG in the emergency room. Taken to the [facility] that demonstrated no significant coronary artery disease. Ventriculogram consistent with
possible Takotsubo cardiomyopathy, patient developed hypotension of after receiving Lasix in the [facility]. Required Levophed. Transferred to the critical care unit for further care. Due to increased work of breathing also BiPAP was started.
Cardiogenic shock-catheterization and echocardiogram consistent with Takotsubo cardiomyopathy
Hypoxemic respiratory failureRecurrent BiPAP therapy for increased work of breathing
Chest x-ray with increased interstitial marking bilaterally.
Takotsubo cardiomyopathy based on left heart catheterization 03/10/2024
No significant coronary artery disease.
Troponin increased, non-MO.
Conditions present prior admission:
Hyperlipidemia
Assessment and plan:
Patient is critically ill requiring noninvasive mechanical ventilation as well as vasopressors due to Takotsubo cardiomyopathy.
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 Perhaps reason for Takotsubo cardiomyopathy
-
Shock: Improved hemodynamics.
Echocardiogram noted03/10/2024: Ejection fraction 30 to 35%. Hyperdynamic basal wall segment with mid to distal severe hypokinesis of all gaitan suggestive of Takotsubo cardiomyopathy. Intermittent complete obliteration of the LVOT, moderate to
severe MR. Mild pulmonary hypertension
-
Catheterization 03/10/2024: No evidence for obstructive coronary artery disease. Severe hypokinesis of mid to apical segments ejection fraction 30 to 35%, consistent with Takotsubo cardiomyopathy. Increased LVEDP
-
Discussed with cardiology 03/12/2024: Avoid tachycardia-continue to wean down Major-Synephrine, currently at a minimal dose.
Hemodynamics improved
Encourage oral intake
Unable to diurese at this point
Low-dose beta-blockers as able
Antiplatelets
Statins
Continue goal-directed therapy for cardiomyopathy. Normal renal function
-
Continue ICU hemodynamic monitoring.
Plan is to repeat echocardiogram once off vasopressors.
-
Continue Philip
Strict TAYLER's
Daily weight-unable to diurese at this point due to borderline hemodynamics.
-
No longer requiring BiPAP.
On low rate supplemental oxygen, wean off as able.
-
Diet as tolerated.
Head of the bed elevation
-
DVT prophylaxis subcu
-
updated at the bedside by Dr. Augustine 03/10/2024.
-
Critical care statement: A total of 31 minutes of critical care time was provided for this patient today. This includes management of unstable vital signs, evaluation of the patient at bedside, reviewing the patient's pertinent medical records
including ventilator settings, arterial blood gases, radiographs, microbiology, laboratory evaluations and discussion with primary team, critical care nursing, and respiratory therapy.
Subjective Dataa
Subjective Data
Date of Service:
Date of Service: March 12, 2024
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
Subjective:
Patient states that she feels better.
Was able to ambulate to the restroom
Denies cough or phlegm production
Review of Systems
Cardiopulmonary: Dyspnea (Improved), Dyspnea on Exertion ( improved) and Chest Pain (n)
Objective Data
Data Reviewed
Vital Signs / I&O / Oxygen:
Vital Signs
Temp Pulse Resp BP Pulse Ox
97.8 F 70 12 97/70 99
03/12/24 08:23 03/12/24 10:30 03/12/24 10:30 03/12/24 10:30 03/12/24 10:30
Intake and Output
03/11/24 03/12/24 03/13/24
06:59 06:59 06:59
Intake Total 664.5 / 688.5 1400 / 1406
Output Total 970 / 995 1620 / 1720 375 / 375
Balance -305.5 / -306.5 -220 / -314 -351 / -351
SaO2 99
Nasal Cannula flow liters per 6
minute
Physical Exam
General: Comfortable
HEENT: Normocephalic
Cardiovascular: S1-S2
Respiratory: Crackles (Minimal, bibasilar, improved) and Non-Labored Respirations (at rest)
GI: Soft and Non Distended
Neurology: Awake, AO x 3 and No Motor Deficits
Skin: Warm
Labs/Micro/Reports
Lab Data
03/12/24 04:02
03/12/24 04:02
--- NOTE | 2024-03-12 12:16 | PTCARENOTE ---
assessment unchanged. pt oob to chair. no complaints at this time
--- NOTE | 2024-03-12 13:02 | CM ---
CM following re: discharge planning.
Reviewed pt's chart, met with pt and pt's spouse at bedside.
Pt is a 68 year old female, admitted with primary dx of Cardiogenic shock. Hypoxemic respiratory failure. Recurrent BiPAP therapy for increased work of breathing. Currently requires 2L NC of O2.
Pt reports she livers with 2SH, 2 steps to enter, has 4 supportive children. 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 No DME, VN or SNF history.
PCP: [facility]
Pharmacy: [facility]
D/C plan: home with anticipated no needs. Spouse to transport at discharge.
CM will follow with discharge plan updates as hospitalization progresses
--- NOTE | 2024-03-12 16:41 | PTCARENOTE ---
per Dr. Earle davison overnight. pt ambulating in hallway. on room air. no complaints at this time, remains off valery
[2024-03-12] MEDS: LOVENOX 40 MG SC (17:12)
[2024-03-12] MEDS: LIPITOR 20 MG PO (17:13)
[2024-03-12 19:19] LABS: Hepatitis C Antibody Negative (Negative)
--- NOTE | 2024-03-12 20:30 | PTCARENOTE ---
sample distributor, pt OOB sitting in chair, denies pain, SR HR 80s, RA Sat 94%. LAC 20, RFA 20 flushed/patent- RAC IV leaking when flushed- d/c'd. Philip draining adequate amt yellow urine. POC discussed, call thomas with pt.
[2024-03-12] MEDS: MELATONIN 5 MG PO (21:44)
--- NOTE | 2024-03-12 21:45 | PTCARENOTE ---
mouth care/CHG cloths/Philip care; pt back to bed. denies lightheadedness w/ambulation. call thomas in reach.
[2024-03-13] VITALS (21 sets, daily range): BP systolic 87–121; BP diastolic 53–74; BMI 24.8
--- NOTE | 2024-03-13 04:00 | PTCARENOTE ---
no changes in assessment.
[2024-03-13 04:53] LABS: Albumin 3.3 g/dl (3.5-5.0); Blood Urea Nitrogen 14 mg/dl (7-17); Calcium 8.5 mg/dl (8.4-10.2); Carbon Dioxide 27 mmol/L (22-30); Chloride 103 mmol/L (98-107); Estimated Creatinine Clearance 63 ml/min; Glucose 100 mg/dl (70-99); Phosphorus 3.6 mg/dl (2.5-4.5); Sodium 137 mmol/L (135-145); eGFR > 60.00
--- NOTE | 2024-03-13 07:56 | W.PN.CD ---
Today's Communication / Plan
-
Repeat an echocardiogram.
Continue metoprolol succinate.
Start dapagliflozin 10 mg daily now.
If echo shows resolution of HOWARD, we will start low dose ACEI.
If she tolerates these medications, she can be moved to IMU with anticipated discharge in 24-36 hours.
Impression / Plan
-
Impression/Plan: 68-year-old female with hyperlipidemia presented for evaluation for sudden onset chest pain and dynamic EKG changes concerning for ACS; subsequent cardiac catheterization found Takotsubo cardiomyopathy with HOWARD/LVOT obstruction +
severe MR which was then complicated by cardiogenic shock requiring pressor support (phenylephrine/norepinephrine) and non-invasive mechanical ventilation.
#Cardiogenic shock
-Acute, in the setting of Takotsubo cardiomyopathy with significant LV outflow tract obstruction.
-LVEF = 30-35%.
-Will try to wean off of phenylephrine.
-Continue Toprol-XL 25 mg BID for now.
-Holding diuretics due to LVOT obstruction. She does not examine as acutely volume overloaded.
-Continue to monitor in ICU while we are starting GDMT.
-Repeat echocardiogram this morning.
-Start dapagliflozin 10 mg daily now.
-If echo looks reasonable, we will start low dose ACEI.
#Acute hypoxic respiratory failure
-Secondary to to HFrEF with severe mitral valve regurgitation.
-Respiratory status improved.
-Diuretics held given HOWARD/LVOT obstruction, need for preload.
#Severe MR
-Acute, due to HOWARD in the setting of takotsubo CMY.
-This required significant afterload increase to paradoxically decrease flow through the LVOT and decrease the HOWARD, thus improving flow through the LVOT and decreasing the mitral regurgitation.
-Re-assess as we wean from pressors.
#Non-OK troponin elevation
-Acute.
-Due to Takotsubo cardiomyopathy, not from ACS or obstructive coronary artery disease.
#HLD
-Chronic, stable.
-Total cholesterol = 153, LDLv = 59, HDL = 73, Triglycerides = 105.
-Continue atorvastatin 20 mg daily.
Critical Care Time = 40 minutes.
Subjective/Interval History:
Weight stable.
SaO2 97% on 2 LNC.
BP's remains low normal to mildly hypotensive.
Off of phenylephrine since 11 AM yesterday.
She feels well.
DATA:
Transthoracic Echocardiogram, 03/10/2024:
CONCLUSIONS
Moderately reduced left ventricular systolic function. Left ventricular
ejection fraction is 30-35% by visual estimate.
Hyperdynamic basal wall segments with mid to distal severe hypokinesis of all
gaitan suggestive of Takotsubo cardiomyopathy.
Intermittent complete obliteration of the LVOT, gradients not obtained due to
patient distress limiting the study.
Systolic anterior motion of the mitral valve leaflets with moderate to severe,
eccentric mitral regurgitation.
Mild pulmonary hypertension.
No prior study available for comparison.
Cardiac Catheterization, 03/10/2024:
CONCLUSIONS
1. No obstructive coronary artery disease.
2. In a single-plane MCKENNA projection, there is severe hypokinesis in the mid to apical segments with hyperdynamic base, most consistent with stress-induced or Takotsubo cardiomyopathy. Estimated LVEF of about 30 to 35%.
3. Significantly elevated LVEDP at 38 mmHg.
Physical Exam
Vital Signs/Labs
Vital Signs
Temp Pulse Resp BP Pulse Ox
36.9 C 68 18 91/59 97
03/13/24 03:46 03/13/24 06:00 03/12/24 13:30 03/13/24 06:00 03/13/24 06:00
03/11/24 03/12/24 03/13/24
11:59 11:59 11:59
Actual Weight 61.8 kg 62.1 kg 61.4 kg
03/12/24 04:02
03/13/24 04:19
PT 14.0 Sec (11.4-14.6) 03/10/24 16:55
INR 1.02 03/10/24 16:55
APTT 29.7 Sec (23.4-35.0) 03/10/24 21:39
Magnesium 2.3 mg/dl (1.6-2.3) 03/10/24 11:16
Triglycerides 105 mg/dl (10-149) 03/11/24 03:39
LDL Cholesterol, Calc 59 mg/dl 03/11/24 03:39
VLDL Cholesterol, Calc 21 mg/dl (0-30) 03/11/24 03:39
HDL Cholesterol 73 mg/dl 03/11/24 03:39
TSH 2.07 uIU/ml (0.47-4.68) 03/10/24 11:16
LAB Results
03/10/24 03/10/24 03/10/24
11:16 16:55 21:39
Troponin I 0.152 H* 1.670 H* D 2.360 H* D
03/11/24 03/11/24 03/11/24
03:39 09:33 16:23
Troponin I 4.460 H* D 3.210 H* D Cancelled
03/11/24 03/11/24
16:59 22:24
Troponin I 2.270 H* D 2.170 H*
Physical Exam
Constitutional: No acute distress and Comfortable
EENT: Anicteric and Moist mucous membranes
Cardiovascular: Rhythm & rate is regular, Pedal edema is absent, JVD pressure is normal, S1S2 is normal and Murmur/rub/gallop absent
Respiratory: Respiratory effort normal, Lungs clear to auscul., Wheeze Absent, Crackles Absent and Rhonchi Absent
GI: Soft, Distention absent, Flat, Non tender and Normal bowel sounds
Neuro/Psych: AO x 3
Other: Cath Site (Right radial access site is C/D/I.)
Data Reviewed
-
Date of Service: March 13, 2024
Medical Decision Making: Reviewed Test Results, Independent Historian Assessment, Test Interpretation and Review of Case with other Provider
EKG: Tracing Personally Visualized and interpreted and Report Reviewed by me
Echo: Report Reviewed by me
X-Ray/CT/US/MRI/NUC/PET: Image Personally Visualized and interpreted and Report Reviewed by me
Medical Tests (PFT, Pathology etc): Report Reviewed by me
Labs: Labs Reviewed by me
Old Records: Reviewed
[2024-03-13] MEDS: TOPROL XL 25 MG PO ×2 (08:08→20:17)
[2024-03-13] MEDS: TOBREX 0.3% EYE DROPS LEFT EYE ×2 (08:08→08:10)
[2024-03-13] MEDS: LOW STRENGTH ASPIRIN 81 MG PO (08:08)
--- NOTE | 2024-03-13 08:22 | PTCARENOTE ---
pt received from previous rn- aox4, placed on room air, davison d/c per Dr. Augustine order-due to void at 1400. Pt ambulates in room without difficulty. no complaints at this time. all safety precautions in place, call thomas within reach. nsr on
monitor.
--- NOTE | 2024-03-13 11:45 | W.PN.INTV ---
Today's Communication / Plan
Recommendations
Continue cardiac management
ICU monitoring
Repeat echocardiogram
Will consider transition to intermediate care unit later today
Sleep evaluation in the outpatient setting-rule out obstructive sleep apnea
Assessment
-
68-year-old woman who was admitted to the hospital on 03/10/2024 complaining of chest pressure, abnormal EKG in the emergency room. Taken to the Report [facility] that demonstrated no significant coronary artery disease. Ventriculogram consistent with
possible Takotsubo cardiomyopathy, patient developed hypotension of after receiving Lasix in the Report [facility]. Required Levophed. Transferred to the critical care unit for further care. Due to increased work of breathing also BiPAP was started.
Cardiogenic shock-catheterization and echocardiogram consistent with Takotsubo cardiomyopathy
Hypoxemic respiratory failureRecurrent BiPAP therapy for increased work of breathing
Chest x-ray with increased interstitial marking bilaterally.
Takotsubo cardiomyopathy based on left heart catheterization 03/10/2024
No significant coronary artery disease.
Troponin increased, non-AK.
Conditions present prior admission:
Hyperlipidemia
Assessment and plan:
Patient required noninvasive mechanical ventilation as well as vasopressors due to Takotsubo cardiomyopathy.
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 Perhaps reason for Takotsubo cardiomyopathy
-
Shock has resolved-off vasopressors last 24 hours.
Echocardiogram noted03/10/2024: Ejection fraction 30 to 35%. Hyperdynamic basal wall segment with mid to distal severe hypokinesis of all gaitan suggestive of Takotsubo cardiomyopathy. Intermittent complete obliteration of the LVOT, moderate to
severe MR. Mild pulmonary hypertension
-
Catheterization 03/10/2024: No evidence for obstructive coronary artery disease. Severe hypokinesis of mid to apical segments ejection fraction 30 to 35%, consistent with Takotsubo cardiomyopathy. Increased LVEDP
-
Normal renal function
Shortness of breath improved
Encourage oral intake
Unable to diurese at this point.
Low-dose beta-blockers as able.
Antiplatelets
Statins
Dapgliflozin started
Continue goal-directed therapy for cardiomyopathy. Normal renal function
Repeat echocardiogram today
-
Discontinue Philip today
Daily weight-unable to diurese at this point due to borderline hemodynamics.
-
Oxygen weaned off
BiPAP discontinue
-
Diet as tolerated.
Head of the bed elevation
-
Patient recommended to undergo sleep apnea evaluation. She states that she was told to obtain a sleep study in the past
-
DVT prophylaxis subcu
-
updated at the bedside by Dr. Augustine 03/10/2024, 02/09/2025 and 02/10/2025.
-
Observe until this afternoon. If stable then will transfer to IMU.
This patient is transferred out then critical care team will sign off.
Please call pulmonary if any respiratory issues arise
-
Subjective Dataa
Subjective Data
Date of Service:
Date of Service: March 13, 2024
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
Subjective:
Patient offers no new complaints
Stable overnight
Denies chest pain or lightheadedness
Ambulated to the restroom without shortness of breath
Review of Systems
Cardiopulmonary: Dyspnea (none at rest)
GI: Abdominal Pain (n) and Nausea (n)
Neuro: Headache (n)
Objective Data
Data Reviewed
Vital Signs / I&O / Oxygen:
Vital Signs
Temp Pulse Resp BP Pulse Ox
97.9 F 81 18 97/63 95
03/13/24 08:22 03/13/24 10:03 03/12/24 13:30 03/13/24 10:03 03/13/24 08:37
Intake and Output
03/12/24 03/13/24 03/14/24
06:59 06:59 06:59
Intake Total 1400 / 1406 984 / 984
Output Total 1620 / 1720 2095 / 2170 150 / 150
Balance -220 / -314 -1111 / -1186 -150 / -150
SaO2 95
Nasal Cannula flow liters per 2
minute
Physical Exam
General: Comfortable
HEENT: Normocephalic
Cardiovascular: S1-S2
Respiratory: Crackles (Minimal, bibasilar, improved) and Non-Labored Respirations (at rest)
GI: Soft and Non Distended
Neurology: Awake, AO x 3 and No Motor Deficits
Skin: Warm
Labs/Micro/Reports
Lab Data
03/12/24 04:02
03/13/24 04:19
--- NOTE | 2024-03-13 12:25 | PTCARENOTE ---
assessment unchanged. pt ambulating in room, oob to chair. at bedside.
--- NOTE | 2024-03-13 12:50 | CM ---
Addendum entered by Hernandez Chong 03/13/24 16:26:
CM spoke to the pt and her . Pt stated she has $600.00 cap for medication and after she meets her deductible Farxiga cost will be $125.00 and per pt it is affordable. Free 30 days Farxiga coupon provided. is awre.
Original Note:
CM following re: discharge planning.
Reviewed pt's chart, met with pt.
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
Farxiga 10 mg D calderon checked, with pt's pharmacy: $614.00 per month. Pt is aware and she stated she will not afford to pay. notified.
D/C plan: home with anticipated no needs. Spouse to transport at discharge.
CM will follow with discharge plan updates as hospitalization progresses
[2024-03-13] MEDS: FARXIGA 10 MG PO (15:34)
--- NOTE | 2024-03-13 15:57 | W.PN.UPDATE ---
Update Note
Progress Note Update
Patient has been stable
Tolerating medications
Will transfer to IVU
Critical care team will sign off
--- NOTE | 2024-03-13 16:04 | PTCARENOTE ---
pt and provided education about farixga- verbalized understanding, pt agreeable to take at this time. pt downgraded to ivu. no further complaints, assessment unchanged.
[2024-03-13] MEDS: LOVENOX 40 MG SC (17:10)
[2024-03-13] MEDS: LIPITOR 20 MG PO (17:10)
--- NOTE | 2024-03-13 18:23 | PTCARENOTE ---
report to given to andrea gomez on ivu, pt wheelchaired down with and belongings.
--- NOTE | 2024-03-13 18:34 | PTCARENOTE ---
Patient received from ICU in a wheelchair. VSS, placed on telemetry, call thomas in reach
--- NOTE | 2024-03-13 20:00 | PTCARENOTE ---
Received pt from [facility]. pt resting comfortably in chair. pt was transferred down from ICU today after improved heart function, see Echo report. pt is AAOx4, denies pain. pt moves all extremities appropriately. heart sounds audible, radial and DP
pulse palpable, no edema noted. lung clear, spo2 96% on RA. +bs x4 quadrants, abdomen soft non tender. pt voiding clear yellow urine. right radial cath site OT and maintained. PIV maintained. call thomas within reach. will continue to monitor.
[2024-03-13] MEDS: MELATONIN 5 MG PO (20:20)
[2024-03-14] VITALS: BP 110/73
--- NOTE | 2024-03-14 | PTCARENOTE ---
Pt assessment unchanged. NSR on monitor. VSS. pt resting comfortably in bed. call thomas within reach. will continue to monitor.
[2024-03-14 03:07] VITALS: BP 102/61
[2024-03-14 03:15] VITALS: BMI 24.2
--- NOTE | 2024-03-14 04:00 | PTCARENOTE ---
Pt assessment unchanged. NSR on monitor. VSS. labs drawn and weight obtained.
[2024-03-14 04:24] LABS: Albumin 3.5 g/dl (3.5-5.0); Blood Urea Nitrogen 11 mg/dl (7-17); Calcium 8.7 mg/dl (8.4-10.2); Carbon Dioxide 27 mmol/L (22-30); Chloride 103 mmol/L (98-107); Estimated Creatinine Clearance 63 ml/min; Glucose 91 mg/dl (70-99); Phosphorus 4.2 mg/dl (2.5-4.5); Potassium 4.2 mmol/L (3.5-5.1); Sodium 137 mmol/L (135-145); eGFR > 60.00
[2024-03-14 08:08] VITALS: BP 83/60
[2024-03-14 08:09] VITALS: BP 98/63
[2024-03-14] MEDS: LOW STRENGTH ASPIRIN 81 MG PO (08:53)
[2024-03-14] MEDS: FARXIGA 10 MG PO (08:53)
[2024-03-14 08:55] VITALS: BP 110/65
[2024-03-14] MEDS: TOPROL XL 25 MG PO (08:56)
--- NOTE | 2024-03-14 09:55 | W.PN.CD ---
Addendum entered and electronically signed by Alden Og MD 03/14/24 12:11:
Patient seen and examined in collaboration with METAL CUT OFF SAW OPERATOR; agree with below.
-Repeat echocardiogram yesterday revealed that LVEF has normalized and is now >70%.
-Stable for discharge to home.
-Outpatient follow-up with Cardiology.
Original Note:
Today's Communication / Plan
-
Home today after seen by Dr. Og. She feels and looks well. Ambulating without issue. All questions answered. Echo improved as noted. She lives in [place] and would like to follow-up with her foreign exchange trader there, Dr. Cheo Oleary. Continue
metoprolol.
Impression / Plan
-
Impression/Plan: 68-year-old female with hyperlipidemia presented for evaluation for sudden onset chest pain and dynamic EKG changes concerning for ACS; subsequent cardiac catheterization found Takotsubo cardiomyopathy with HOWARD/LVOT obstruction +
severe MR which was then complicated by cardiogenic shock requiring pressor support (phenylephrine/norepinephrine) and non-invasive mechanical ventilation.
#Cardiogenic shock: in the setting of Takotsubo cardiomyopathy with significant LV outflow tract obstruction- now resolved.
-off pressors
-Repeat echo showed hyperdynamic left ventricular systolic function. Left ventricular ejection fraction is >70%, Systolic anterior motion of the anterior mitral valve leaflet. Thickened mitral valve leaflets. Mild to moderate mitral regurgitation.
Mild tricuspid regurgitation. Estimated pulmonary artery pressure of 38 mmHg.
#Acute hypoxic respiratory failure: resolved
#Severe MR: improved, now mild to moderate
-Acute, due to HOWARD in the setting of takotsubo CMY.
#Non-ID troponin elevation
-Due to Takotsubo cardiomyopathy, not from ACS or obstructive coronary artery disease.
#HLD
-Chronic, stable.
-Continue atorvastatin 20 mg daily.
Physical Exam
Vital Signs/Labs
Vital Signs
Temp Pulse Resp BP Pulse Ox
98.5 F 84 18 110/65 96
03/14/24 08:09 03/14/24 09:00 03/14/24 08:09 03/14/24 08:55 03/14/24 08:09
03/13/24 03/14/24 03/15/24
06:59 06:59 06:59
Actual Weight 61.4 kg 60 kg
03/12/24 04:02
03/14/24 03:12
PT 14.0 Sec (11.4-14.6) 03/10/24 16:55
INR 1.02 03/10/24 16:55
APTT 29.7 Sec (23.4-35.0) 03/10/24 21:39
Magnesium 2.3 mg/dl (1.6-2.3) 03/10/24 11:16
Triglycerides 105 mg/dl (10-149) 03/11/24 03:39
LDL Cholesterol, Calc 59 mg/dl 03/11/24 03:39
VLDL Cholesterol, Calc 21 mg/dl (0-30) 03/11/24 03:39
HDL Cholesterol 73 mg/dl 03/11/24 03:39
TSH 2.07 uIU/ml (0.47-4.68) 03/10/24 11:16
LAB Results
03/11/24 03/11/24 03/11/24
09:33 16:23 16:59
Troponin I 3.210 H* D Cancelled 2.270 H* D
03/11/24
22:24
Troponin I 2.170 H*
Physical Exam
Constitutional: No acute distress
EENT: Anicteric
Cardiovascular: Rhythm & rate is regular
Respiratory: Respiratory effort normal and Lungs clear to auscul.
GI: Soft, Non tender and Normal bowel sounds
Neuro/Psych: AO x 3
Other: Skin (warm and dry)
Data Reviewed
-
Date of Service: March 14, 2024
EKG: Other (tele SR)
Echo: Report Reviewed by me (improved as noted)
Labs: Labs Reviewed by me
[2024-03-14 11:15] VITALS: BP 96/64
--- NOTE | 2024-03-14 11:37 | W.DS.TRANS ---
Addendum entered and electronically signed by Alden Og MD 03/14/24 12:10:
Agree with below.
Original Note:
DC Summary - Metal Spinner
-
Discharge Instructions:
Discharge Diagnosis/Procedures Takotsubo cardiomyopathy
Diet Low Cholesterol
Activity As tolerated,Other activity
Additional Activity See attached form for activity restrictions post
cath
Driving Restrictions As prior to admission
Instructions:
Stand-Alone Forms: DC Instructions- Cath/EP Lab
Changes to Home Medications: Yes
Discharge Medications:
DC Medications w/original date entered in [facility]
atorvastatin 20 mg tablet (Lipitor) 20 mg PO HS High Cholesterol 03/10/24
calcium carbonate 500 mg PO DAILY Supplement 03/10/24
cephalexin 500 mg capsule 500 mg PO Q8H Infection 03/10/24
tobramycin 0.3 % eye drops 1 drp LEFT EYE QID Eye Condition 03/10/24
dapagliflozin propanediol 10 mg tablet 10 mg PO DAILY #30 tabs 03/14/24
metoprolol succinate 25 mg tablet,extended release 24 hr 25 mg PO BID #60 tabs 03/14/24
Home Medication Changes
added metoprolol and dapagliflozin
Pending Results: No
== END 2024-03-14 13:24 | disposition home or self-care (01) | DRG 286 ==
LOC: IVU 12:50
PROVIDERS: Internal Medicine Interventional Cardiology; Nurse Practitioner; Nurse Practitioner Family; ADMITTING PHYSICIAN Internal Medicine Cardiovascular Disease; CONSULT PHYSICIAN Internal Medicine Critical Care Medicine; EMERGENCY PHYSICIAN Emergency Medicine
PROC: 4A023N7 Measurement of Cardiac Sampling and Pressure, Left Heart, Percutaneous Approach (ICD-10-PCS; 2024-03-10)
PROC: B2111ZZ Fluoroscopy of Multiple Coronary Arteries using Low Osmolar Contrast (ICD-10-PCS; 2024-03-10)
PROC: B2151ZZ Fluoroscopy of Left Heart using Low Osmolar Contrast (ICD-10-PCS; 2024-03-10)
DX: I51.81 Takotsubo syndrome (principal); J96.01 Acute respiratory failure with hypoxia; R57.9 Shock, unspecified; I5A Non-ischemic myocardial injury (non-traumatic); E78.00 Pure hypercholesterolemia, unspecified
CPT/HCPCS: 93308; 71045; 80048; 80053; 80061; 80069; 83690; 83735; 84100; 84443; 84484; 85025; 85347; 85610; 85730; 86803; 93005; 93306; 93321; 93325; 93458; 94660; 96374; 96375; 99152; 99153; 99291; C1894; Q9957; Q9967